=== PATIENT | female | born 2005 | race Two or more races ===

== ENCOUNTER 2023-04-12 19:06 | Emergency (ER) | payer OTHER ==
[~2023-04-12] VITALS: Ht 157.5 cm; Wt 91.9 kg
[2023-04-12 21:31] LABS: Chloride 105 mmol/L (98-107); Potassium 4.2 mmol/L (3.5-5.1); Sodium 138 mmol/L (136-145)
[2023-04-12 21:32] LABS: Anion Gap 7 (5-15); Calcium 9.3 mg/dL (8.5-10.1); Carbon Dioxide 26 mmol/L (20-30)
[2023-04-12 21:37] LABS: BUN/Creatinine Ratio 15.7 (10.0-20.0); Blood Urea Nitrogen 11 mg/dL (9-23); Glucose 78 mg/dL (74-106)
[2023-04-12 22:26] LABS: Basophils # (auto) 0 10 ^3/uL (0-0.2); Basophils % (auto) 0.4 % (0.0-2.0); Eosinophils # (auto) 0.1 10 ^3/uL (0-0.8); Monocytes # (auto) 0.8 10 ^3/uL (0-1.3); Nucleated Red Blood Cells % 0.1 %; Red Cell Distribution Width 14.8 % (11.8-14.3)
[2023-04-12 22:28] LABS: Eosinophils % (auto) 0.7 % (0.0-7.0); Hemoglobin 13.6 g/dL (12.2-16.2); Lymphocytes # (auto) 3.6 10 ^3/uL (0.4-5.4); Lymphocytes % (auto) 26.8 % (10.0-50.0); Mean Corpuscular Hemoglobin 26.4 pg (28.0-32.0); Mean Corpuscular Hgb Conc. 32.3 g/dL (32.0-36.0); Mean Corpuscular Volume 81.8 fL (80.0-100.0); Neutrophils # (auto) 8.8 10 ^3/uL (1.6-8.6); Neutrophils % (auto) 66.1 % (37.0-80.0); Red Blood Cells 5.14 10^6/uL (4.0-5.20); White Blood Cell 13.3 10^3/uL (4.4-10.8)
[2023-04-12] MEDS: MECLIZINE HCL 25 MG TAB PO ONE (23:31)
[2023-04-12 23:33] VITALS: BP 110/56; PULSE 87; RESP 17; TEMP 97.6; O2SAT 95
[2023-04-13 01:49] LABS: Urine Bacteria FEW /hpf (None Seen); Urine Blood 3+ /uL (Negative); Urine Clarity HAZY (Clear); Urine Color Yellow (Yellow); Urine Mucus FEW (None Seen); Urine Protein, UAD 1+ (Negative); Urine Specific Gravity 1.028 (1.001-1.035); Urine Urobilinogen Normal (Negative); Urine WBC 7 /hpf (0 - 5)
[2023-04-13] MEDS ORDERED: MECL1TAB42 PO (01:52)
[2023-04-13] MEDS ORDERED: ALBU108A5 IN (01:52)
== END 2023-04-13 05:01 | disposition home or self-care (01) ==
LOC: ER 19:06
DX: R42 Dizziness and giddiness (principal); R10.2 Pelvic and perineal pain; R06.02 Shortness of breath
CPT/HCPCS: 36415; 70450; 71046; 80048; 81001; 81025; 84702; 99284; J8597